=== PATIENT | male | born 1980 | race African-American/Black ===

== ENCOUNTER 2017-12-04 09:19 | Emergency (ER) | payer BC ==
[2017-12-04] MEDS: DEXAMETHASONE SOD PHOS 20 MG/5 ML VIAL. IM (09:56)
[2017-12-04] MEDS: KETOROLAC 60 MG/2 ML INJ. IM (09:56)
== END 2017-12-04 11:40 | disposition home or self-care (01) ==
LOC: ER 09:19
DX: M41.84 Other forms of scoliosis, thoracic region (principal); M54.5 Low back pain
CPT/HCPCS: 72072; 72100; 96372; 99284; J1100; J1885

== ENCOUNTER 2019-09-12 18:30 | Emergency (ER) | payer BC ==
[~2019-09-12] VITALS: Ht 180.3 cm; Wt 77.2 kg
[~2019-09-12 18:30] MED LIST: DIAZ5TAB PO; METH4TAB2 PO; NAPR500T8 PO
[2019-09-12 18:39] VITALS: BP 157/94
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
== END 2019-09-12 19:20 | disposition home or self-care (01) ==
LOC: ER 18:30
DX: S62.644A Nondisplaced fracture of proximal phalanx of right ring finger, initial encounter for closed fracture (principal); R60.0 Localized edema; M79.644 Pain in right finger(s); F17.200 Nicotine dependence, unspecified, uncomplicated; F12.90 Cannabis use, unspecified, uncomplicated; Z98.890 Other specified postprocedural states; Y04.2XXA Assault by strike against or bumped into by another person, initial encounter; Y93.89 Activity, other specified; Y92.89 Other specified places as the place of occurrence of the external cause; Y99.8 Other external cause status
CPT/HCPCS: 73130; 99283